=== PATIENT | female | born 1960 | race Caucasian/White ===

== ENCOUNTER → 2016-05-21 | Outpatient (CLI) | payer OTHER ==
--- NOTE | 2016-05-21 15:10 | REPMRS ---
Patient History The patient states she had a clinical breast exam in 05/2016. No known family history of cancer. Benign excisional biopsy of the left breast, 1995. Digital Woman Screen Mammo: May 21, 2016 - Exam #: [id number] Bilateral CC and MLO view(s) were taken. Technologist: Evita Macario, Technologist Prior study comparison: March 11, 2011, digital bilateral screening mammo performed at [facility] to [facility]. November 09, 2006, bilateral screening mammogram performed at [facility] to [facility]. FINDINGS: The breast tissue is extremely dense which could obscure a lesion on mammography. There is no evidence of cancer on this mammogram. No significant changes when compared with prior studies. ASSESSMENT: BI-RADS/ACR category 2 mammogram. Benign finding(s). Recommendation Routine screening mammogram of both breasts in 1 year (for women over age 40). This mammogram was interpreted with the aid of an FDA-approved computer-aided dectection system. Electronically Signed By: Mike Stratton MD 05/21/16 [id number]
== END ==
LOC: M WHC 10:13
PROVIDERS: ATTEND Nurse Practitioner Family
DX: Z12.31 Encounter for screening mammogram for malignant neoplasm of breast (principal)

== ENCOUNTER → 2016-09-02 | Outpatient (CLI) | payer OTHER ==
[~2016-09-02] VITALS: Ht 160 cm; Wt 56.7 kg
[~2016-09-02] MED LIST: NS 1,000 ML IV ONE
--- NOTE | 2016-09-02 13:07 | ROOR ---
Patient Name: Nohelia Carpenter Procedure Date: 09/02/2016 12:46 PM Date of : 1960 Age: 56 Room: [facility] Gender: Female Note Status: Finalized Procedure: Total Colonoscopy to Cecum + Bx. Polypectomy Indications: Screening for colorectal malignant neoplasm Providers: Jose G Pierre MD Referring MD: Michelle Dallas NP Requesting Provider: Medicines: Monitored Anesthesia Care Complications: No immediate complications. Procedure: Pre-Anesthesia Assessment: - The heart rate, respiratory rate, oxygen saturations, blood pressure, adequacy of pulmonary ventilation, and response to care were monitored throughout the procedure. The Colonoscope was introduced through the anus and advanced to the cecum, identified by appendiceal orifice and ileocecal valve. The colonoscopy was performed without difficulty. The patient tolerated the procedure well. The quality of the bowel preparation was good. Findings: The perianal and digital rectal examinations were normal. Non-bleeding internal hemorrhoids were found during retroflexion. The hemorrhoids were small and Grade I (internal hemorrhoids that do not prolapse). No other significant abnormalities were identified in a careful examination of the remainder of the colon. The exam was otherwise without abnormality on direct and retroflexion views. A small polyp was found at 30 cm proximal to the anus. The polyp was sessile. The polyp was removed with a jumbo cold forceps. Resection and retrieval were complete. The exam was otherwise without abnormality. Impression: - Non-bleeding internal hemorrhoids. - The examination was otherwise normal on direct and retroflexion views. - One small polyp at 30 cm proximal to the anus, removed with a jumbo cold forceps. Resected and retrieved. - The examination was otherwise normal. - The exam was otherwise normal to the cecum. Recommendation: - Patient has a contact number available for emergencies. The signs and symptoms of potential delayed complications were discussed with the patient. Return to normal activities tomorrow. Written discharge instructions were provided to the patient. - High fiber diet. - Discharge patient to home. - Continue present medications. - Await pathology results. - Telephone GI clinic for pathology results in 1 week. - Repeat colonoscopy in 10 years for surveillance based on pathology results. - Return to referring physician. - The findings and recommendations were discussed with the patient's family. Jose G Pierre MD Jose G Pierre MD 09/02/2016 1:06:35 PM This report has been signed electronically. Number of Addenda: 0 Note Initiated On: 09/02/2016 12:46 PM Estimated Blood Loss: Estimated blood loss: none.
[2016-09-02 13:34] VITALS: BP 136/81
== END | disposition home or self-care (01) ==
LOC: M OPP 11:55
PROVIDERS: ATTEND Internal Medicine Gastroenterology
DX: Z12.11 Encounter for screening for malignant neoplasm of colon (principal); K63.5 Polyp of colon; K64.8 Other hemorrhoids; I51.9 Heart disease, unspecified; Z87.891 Personal history of nicotine dependence; Z88.0 Allergy status to penicillin

== ENCOUNTER → 2021-07-02 | Outpatient (CLI) | payer BC | LOC: M WHC 13:45 | DX: Z12.31 Encounter for screening mammogram for malignant neoplasm of breast (principal); Z78.0 Asymptomatic menopausal state ==

== ENCOUNTER → 2022-12-26 | Outpatient (REF) | payer BC | LOC: M LAB REF 19:52 | PROVIDERS: ATTEND Physician Assistant Medical | DX: B34.9 Viral infection, unspecified (principal) ==

== ENCOUNTER → 2025-02-15 | Outpatient (CLI) | payer BC | LOC: M PLAIMG 08:14 | PROVIDERS: ATTEND Physician Assistant Surgical | DX: M46.1 Sacroiliitis, not elsewhere classified (principal); M62.58 Muscle wasting and atrophy, not elsewhere classified, other site ==